=== PATIENT | female | born 1930 | race Two or more races ===

== ENCOUNTER 2017-12-28 22:50 | Inpatient (IN) | payer MEDICARE, OTHER ==
[~2017-12-28] VITALS: Ht 157.5 cm; Wt 61.2 kg
[2017-12-28 23:38] LABS: BASOPHILS % (AUTO) 0.3 % (0.0-2.0); EOSINOPHILS # (AUTO) 0.1 K/uL (0.0-0.7); EOSINOPHILS % (AUTO) 2.1 % (0.0-7.0); HEMATOCRIT 28.2 % (31.2-41.9); HEMOGLOBIN 9.6 g/dL (10.9-14.3); LYMPHOCYTES # (AUTO) 1.7 K/uL (20.0-40.0); LYMPHOCYTES % (AUTO) 23.2 % (20.5-51.5); MEAN CORPUSCULAR HGB CONC 34 g/dL (32.3-35.6); MEAN CORPUSCULAR VOLUME 93.5 fL (75.5-95.3); MONOCYTES % (AUTO) 13.9 % (0.0-11.0); NEUTROPHILS # (AUTO) 4.3 K/uL (1.8-8.9); NEUTROPHILS % (AUTO) 60.5 % (38.5-71.5); PLATELET COUNT (AUTO) 241 K/uL (179-408); RED BLOOD CELL COUNT(AUTO) 3.02 MIL/uL (3.63-4.92); WHITE BLOOD COUNT (AUTO) 7.1 K/uL (3.8-11.8)
[2017-12-28 23:48] LABS: ALANINE AMINOTRANSFERASE 20 U/L (14-59); ALKALINE PHOSPHATASE 121 U/L (50-136); ASPARTATE AMINOTRANSFERASE 28 U/L (15-37); BILIRUBIN,DIRECT 0.2 mg/dL (0.0-0.2); BILIRUBIN,TOTAL 0.6 mg/dL (0.2-1.0); CARBON DIOXIDE 24 mmol/L (21-32); CHLORIDE 103 mmol/L (98-107); CREATININE 1.2 mg/dL (0.6-1.3); GLUCOSE 78 mg/dL (74-106); POTASSIUM 3.7 mmol/L (3.5-5.1); TOTAL PROTEIN, SERUM 6.9 g/dL (6.4-8.2); UREA NITROGEN, BLOOD 31 mg/dL (7-18)
[2017-12-28] MEDS ORDERED: HYDR-4077 PO (23:51)
[2017-12-28] MEDS ORDERED: DEXL60CA3 PO (23:51)
[2017-12-28] MEDS ORDERED: VALS320T2 PO (23:51)
[2017-12-28] MEDS ORDERED: IPRA3AMP IH (23:51)
[2017-12-28] MEDS ORDERED: ONDA8TAB6 PO (23:51)
[2017-12-28] MEDS ORDERED: WARF2TAB57 PO (23:51)
[2017-12-28] MEDS ORDERED: SENN-167 PO (23:51)
[2017-12-28] MEDS ORDERED: MULT1TAB73 PO (23:51)
[2017-12-28] MEDS ORDERED: ESCI10TA PO (23:51)
[2017-12-28] MEDS ORDERED: GLIM1TAB3 PO (23:51)
[2017-12-28] MEDS ORDERED: ATOR20TA PO (23:51)
[2017-12-28] MEDS ORDERED: METO200T49 PO (23:51)
[2017-12-28] MEDS ORDERED: FURO-151 PO (23:51)
[2017-12-28] MEDS ORDERED: [UNRECOGNIZED DRUG - CODE] IJ (23:51)
[2017-12-28] MEDS ORDERED: PHEN1SUP42 RC (23:51)
[2017-12-28] MEDS ORDERED: NITR0.4T48 SL (23:51)
[2017-12-28] MEDS ORDERED: MELA3TAB PO (23:51)
[2017-12-28] MEDS ORDERED: FERR325T28 PO (23:51)
[2017-12-28] MEDS ORDERED: GUAI600T53 PO (23:51)
[2017-12-28] MEDS ORDERED: CLON0.1T PO (23:51)
[2017-12-28 23:55] LABS: ETHANOL < 3 MG/DL (0-0)
[2017-12-28 23:56] LABS: THYROID STIMULATING HORMONE 2.477 mIU/mL (0.358-3.740)
[2017-12-29] MEDS ORDERED: SULFAMETH/TRIMETH 800/160 MG TABLET PO ONE
[2017-12-29] MEDS ORDERED: SULFAMETH/TRIMETH 800/160 MG TABLET ONE (00:09)
[2017-12-29] MEDS ORDERED: LORAZEPAM 1 MG TABLET PO PRN (01:15)
[2017-12-29] MEDS ORDERED: MAGNESIUM HYDROXIDE 30 ML LIQUID UDC PO PRN (01:15)
[2017-12-29] MEDS ORDERED: MAG HYDROX/AL HYDROX/SIMETH 30 ML LIQUID UDC PO PRN (01:15)
[2017-12-29 03:29] VITALS: BP 150/54
[2017-12-29 07:30] VITALS: BP 164/59
[2017-12-29] MEDS ORDERED: SENNOSIDES 1 TABLET PO PRN (11:00)
[2017-12-29] MEDS ORDERED: Medication Not On Formulary EA (Glimepiride 1 MG) PO SCH (11:00)
[2017-12-29] MEDS ORDERED: Medication Not On Formulary EA (Multivitamins (Multivitamin) 1 EACH) PO SCH (11:00)
[2017-12-29] MEDS ORDERED: Medication Not On Formulary EA (Valsartan (Diovan) 320 MG) PO SCH (11:00)
[2017-12-29] MEDS ORDERED: DEXTROSE 50% 50 ML DISP.SYRIN IV PRN (11:15)
[2017-12-29] MEDS ORDERED: INSULIN REGULAR, HUMAN 300 UNIT/3 ML VIAL SQ PRN (11:15)
[2017-12-29] MEDS: MULTIVITAMINS,THERAPEUTIC TABLET PO SCH (12:01)
[2017-12-29] MEDS: CLONIDINE HCL 0.1 MG TABLET PO SCH ×2 (12:01→21:11)
[2017-12-29] MEDS: BLOOD SUGAR DIAGNOSTIC 1 EACH STRIP VI SCH ×3 (12:02→21:11)
[2017-12-29] MEDS: FUROSEMIDE 20 MG TABLET PO SCH (12:02)
[2017-12-29] MEDS: FERROUS SULFATE 325 MG TABEC PO SCH (12:02)
[2017-12-29] MEDS: METOPROLOL SUCCINATE XL 100 MG TAB.SR.24H PO SCH (12:28)
[2017-12-29] MEDS ORDERED: NITROGLYCERIN 0.4 MG/TAB BOTTLE SL PRN (12:30)
[2017-12-29] MEDS ORDERED: FUROSEMIDE 40 MG TABLET PO SCH (13:00)
[2017-12-29 15:13] VITALS: BP 144/54
[2017-12-29] MEDS: hydrALAZINE HCL 50 MG TABLET PO SCH (16:58)
[2017-12-29] MEDS ORDERED: WARFARIN SODIUM 2 MG TABLET PO SCH (17:00)
[2017-12-29] MEDS ORDERED: WARFARIN SODIUM 1 MG TABLET PO SCH (17:00)
[2017-12-29 20:30] VITALS: BP 126/50
[2017-12-29] MEDS: ATORVASTATIN 20 MG TABLET PO SCH (21:11)
[2017-12-30] MEDS: PANTOPRAZOLE SODIUM 40 MG TABLET.DR PO SCH (06:25)
[2017-12-30] MEDS: BLOOD SUGAR DIAGNOSTIC 1 EACH STRIP VI SCH ×2 (06:31→12:26)
[2017-12-30 07:30] VITALS: BP 146/46
[2017-12-30] MEDS: VALSARTAN 160 MG TABLET PO SCH (08:13)
[2017-12-30] MEDS: FERROUS SULFATE 325 MG TABEC PO SCH ×2 (08:13→17:20)
[2017-12-30] MEDS: MULTIVITAMINS,THERAPEUTIC TABLET PO SCH (08:14)
[2017-12-30] MEDS: FUROSEMIDE 20 MG TABLET PO SCH (08:14)
[2017-12-30] MEDS: METOPROLOL SUCCINATE XL 100 MG TAB.SR.24H PO SCH (08:14)
[2017-12-30] MEDS: CLONIDINE HCL 0.1 MG TABLET PO SCH ×2 (08:15→20:10)
[2017-12-30] MEDS: GLIMEPIRIDE 2 MG TABLET PO SCH (08:15)
[2017-12-30] MEDS: VENLAFAXINE XR 37.5 MG CAP.SR.24H PO SCH (08:15)
[2017-12-30] MEDS: hydrALAZINE HCL 50 MG TABLET PO SCH ×2 (08:15→17:20)
[2017-12-30] MEDS ORDERED: METOPROLOL SUCCINATE 200 MG PO SCH (09:00)
[2017-12-30] MEDS ORDERED: CEPHALEXIN MONOHYDRATE 500 MG CAPSULE PO SCH (12:45)
[2017-12-30 15:30] VITALS: BP 143/44
[2017-12-30] MEDS: CEPHALEXIN MONOHYDRATE 250 MG CAPSULE PO SCH ×2 (17:20→23:01)
[2017-12-30] MEDS: WARFARIN SODIUM 2 MG TABLET PO SCH (17:25)
[2017-12-30] MEDS: ATORVASTATIN 20 MG TABLET PO SCH (20:09)
[2017-12-30] MEDS: ACETAMINOPHEN 325 MG TABLET PO PRN (20:10)
[2017-12-30 20:35] VITALS: BP 141/82
[2017-12-31] MEDS: ZOLPIDEM 5 MG TABLET PO PRN ×2 (01:32→21:13)
[2017-12-31] MEDS: PANTOPRAZOLE SODIUM 40 MG TABLET.DR PO SCH (06:04)
[2017-12-31] MEDS: CEPHALEXIN MONOHYDRATE 250 MG CAPSULE PO SCH ×3 (06:04→21:02)
[2017-12-31] MEDS: BLOOD SUGAR DIAGNOSTIC 1 EACH STRIP VI SCH ×2 (06:17→09:44)
[2017-12-31 07:30] VITALS: BP 156/48
[2017-12-31] MEDS: FERROUS SULFATE 325 MG TABEC PO SCH ×2 (08:59→16:01)
[2017-12-31] MEDS: MULTIVITAMINS,THERAPEUTIC TABLET PO SCH (08:59)
[2017-12-31] MEDS: CLONIDINE HCL 0.1 MG TABLET PO SCH ×2 (08:59→20:25)
[2017-12-31] MEDS: hydrALAZINE HCL 50 MG TABLET PO SCH ×2 (09:00→16:01)
[2017-12-31] MEDS: GLIMEPIRIDE 2 MG TABLET PO SCH (09:00)
[2017-12-31] MEDS: FUROSEMIDE 20 MG TABLET PO SCH (09:00)
[2017-12-31] MEDS: METOPROLOL SUCCINATE XL 100 MG TAB.SR.24H PO SCH (09:01)
[2017-12-31] MEDS: VALSARTAN 160 MG TABLET PO SCH (09:01)
[2017-12-31] MEDS: VENLAFAXINE XR 37.5 MG CAP.SR.24H PO SCH (09:44)
[2017-12-31] MEDS: ACETAMINOPHEN 325 MG TABLET PO PRN (11:06)
[2017-12-31] MEDS ORDERED: TRAMADOL HCL 50 MG TABLET PO PRN ×2 (14:00→16:00)
[2017-12-31 15:55] VITALS: BP 143/50
[2017-12-31] MEDS: WARFARIN SODIUM 2 MG TABLET PO SCH (16:02)
[2017-12-31 20:00] VITALS: BP 151/54
[2017-12-31] MEDS: ATORVASTATIN 20 MG TABLET PO SCH (20:25)
[2018-01-01] MEDS: BLOOD SUGAR DIAGNOSTIC 1 EACH STRIP VI SCH (06:45)
[2018-01-01] MEDS: CEPHALEXIN MONOHYDRATE 250 MG CAPSULE PO SCH ×3 (06:51→22:07)
[2018-01-01] MEDS: PANTOPRAZOLE SODIUM 40 MG TABLET.DR PO SCH (06:51)
[2018-01-01 07:30] VITALS: BP 148/52
[2018-01-01] MEDS: hydrALAZINE HCL 50 MG TABLET PO SCH ×2 (08:06→17:37)
[2018-01-01] MEDS: GLIMEPIRIDE 2 MG TABLET PO SCH (08:06)
[2018-01-01] MEDS: FERROUS SULFATE 325 MG TABEC PO SCH ×2 (08:06→17:38)
[2018-01-01] MEDS: MULTIVITAMINS,THERAPEUTIC TABLET PO SCH (08:06)
[2018-01-01] MEDS: VENLAFAXINE XR 37.5 MG CAP.SR.24H PO SCH (08:07)
[2018-01-01] MEDS: CLONIDINE HCL 0.1 MG TABLET PO SCH ×2 (08:07→20:07)
[2018-01-01] MEDS: VALSARTAN 160 MG TABLET PO SCH (08:08)
[2018-01-01] MEDS: FUROSEMIDE 20 MG TABLET PO SCH (08:08)
[2018-01-01] MEDS: METOPROLOL SUCCINATE XL 100 MG TAB.SR.24H PO SCH ×2 (08:17→10:09)
[2018-01-01 17:41] VITALS: BP 135/56
[2018-01-01] MEDS: WARFARIN SODIUM 2 MG TABLET PO SCH (17:41)
[2018-01-01] MEDS: ACETAMINOPHEN 325 MG TABLET PO PRN (20:06)
[2018-01-01] MEDS: ATORVASTATIN 20 MG TABLET PO SCH (20:06)
[2018-01-01 20:12] VITALS: BP 169/51
[2018-01-02] MEDS: ZOLPIDEM 5 MG TABLET PO PRN ×2 (01:04→20:38)
[2018-01-02] MEDS: CEPHALEXIN MONOHYDRATE 250 MG CAPSULE PO SCH ×3 (06:07→21:32)
[2018-01-02] MEDS: PANTOPRAZOLE SODIUM 40 MG TABLET.DR PO SCH (06:08)
[2018-01-02] MEDS: BLOOD SUGAR DIAGNOSTIC 1 EACH STRIP VI SCH (06:35)
[2018-01-02 07:30] VITALS: BP 145/48
[2018-01-02] MEDS: FUROSEMIDE 20 MG TABLET PO SCH (08:11)
[2018-01-02] MEDS: MULTIVITAMINS,THERAPEUTIC TABLET PO SCH (08:11)
[2018-01-02] MEDS: GLIMEPIRIDE 2 MG TABLET PO SCH (08:11)
[2018-01-02] MEDS: CLONIDINE HCL 0.1 MG TABLET PO SCH ×2 (08:11→20:36)
[2018-01-02] MEDS: FERROUS SULFATE 325 MG TABEC PO SCH ×2 (08:11→16:33)
[2018-01-02] MEDS: VENLAFAXINE XR 37.5 MG CAP.SR.24H PO SCH (08:11)
[2018-01-02] MEDS: VALSARTAN 160 MG TABLET PO SCH (08:12)
[2018-01-02] MEDS: hydrALAZINE HCL 50 MG TABLET PO SCH ×2 (08:12→16:33)
[2018-01-02] MEDS: METOPROLOL SUCCINATE XL 100 MG TAB.SR.24H PO SCH (08:13)
[2018-01-02] MEDS: ACETAMINOPHEN 325 MG TABLET PO PRN ×2 (11:35→23:26)
[2018-01-02 16:01] VITALS: BP 153/50
[2018-01-02] MEDS: WARFARIN SODIUM 2 MG TABLET PO SCH (16:34)
[2018-01-02] MEDS: ATORVASTATIN 20 MG TABLET PO SCH (20:36)
[2018-01-02 20:58] VITALS: BP 169/60
[2018-01-02] MEDS: LORAZEPAM 1 MG TABLET PO PRN (23:26)
[2018-01-03] MEDS: PANTOPRAZOLE SODIUM 40 MG TABLET.DR PO SCH (06:13)
[2018-01-03] MEDS: CEPHALEXIN MONOHYDRATE 250 MG CAPSULE PO SCH ×3 (06:13→21:07)
[2018-01-03] MEDS: BLOOD SUGAR DIAGNOSTIC 1 EACH STRIP VI SCH ×2 (06:21→07:27)
[2018-01-03] MEDS: VALSARTAN 160 MG TABLET PO SCH (08:11)
[2018-01-03] MEDS: hydrALAZINE HCL 50 MG TABLET PO SCH ×2 (08:12→16:28)
[2018-01-03] MEDS: VENLAFAXINE XR 37.5 MG CAP.SR.24H PO SCH (08:12)
[2018-01-03] MEDS: MULTIVITAMINS,THERAPEUTIC TABLET PO SCH (08:12)
[2018-01-03] MEDS: FERROUS SULFATE 325 MG TABEC PO SCH ×2 (08:12→16:26)
[2018-01-03] MEDS: FUROSEMIDE 20 MG TABLET PO SCH (08:12)
[2018-01-03] MEDS: GLIMEPIRIDE 2 MG TABLET PO SCH (08:12)
[2018-01-03] MEDS: CLONIDINE HCL 0.1 MG TABLET PO SCH ×2 (08:12→21:09)
[2018-01-03] MEDS: METOPROLOL SUCCINATE XL 100 MG TAB.SR.24H PO SCH (08:13)
[2018-01-03 08:17] VITALS: BP 164/53
[2018-01-03] MEDS: AMLODIPINE 5 MG TABLET PO SCH (13:53)
[2018-01-03] MEDS: ACETAMINOPHEN 325 MG TABLET PO PRN ×2 (16:26→21:08)
[2018-01-03] MEDS: WARFARIN SODIUM 2 MG TABLET PO SCH (16:59)
[2018-01-03] MEDS: ATORVASTATIN 20 MG TABLET PO SCH (21:07)
[2018-01-03] MEDS: ZOLPIDEM 5 MG TABLET PO PRN (21:08)
[2018-01-03 21:40] VITALS: BP 143/51
[2018-01-04] MEDS: ACETAMINOPHEN 325 MG TABLET PO PRN ×2 (02:23→16:38)
[2018-01-04] MEDS: LORAZEPAM 1 MG TABLET PO PRN (02:23)
[2018-01-04] MEDS: CEPHALEXIN MONOHYDRATE 250 MG CAPSULE PO SCH ×2 (06:18→13:53)
[2018-01-04] MEDS: PANTOPRAZOLE SODIUM 40 MG TABLET.DR PO SCH (06:18)
[2018-01-04] MEDS: BLOOD SUGAR DIAGNOSTIC 1 EACH STRIP VI SCH (06:28)
[2018-01-04 07:30] VITALS: BP 125/38
[2018-01-04] MEDS: VALSARTAN 160 MG TABLET PO SCH (08:06)
[2018-01-04] MEDS: MULTIVITAMINS,THERAPEUTIC TABLET PO SCH (08:06)
[2018-01-04] MEDS: GLIMEPIRIDE 2 MG TABLET PO SCH (08:06)
[2018-01-04] MEDS: VENLAFAXINE XR 37.5 MG CAP.SR.24H PO SCH (08:07)
[2018-01-04] MEDS: METOPROLOL SUCCINATE XL 100 MG TAB.SR.24H PO SCH (08:07)
[2018-01-04] MEDS: FERROUS SULFATE 325 MG TABEC PO SCH ×2 (08:07→16:38)
[2018-01-04] MEDS: FUROSEMIDE 20 MG TABLET PO SCH (08:08)
[2018-01-04] MEDS: AMLODIPINE 5 MG TABLET PO SCH (08:08)
[2018-01-04] MEDS: hydrALAZINE HCL 50 MG TABLET PO SCH ×2 (08:09→16:39)
[2018-01-04] MEDS: CLONIDINE HCL 0.1 MG TABLET PO SCH (08:09)
[2018-01-04 16:34] VITALS: BP 170/55
[2018-01-04 16:39] VITALS: BP 140/50
[2018-01-04] MEDS: WARFARIN SODIUM 2 MG TABLET PO SCH (16:42)
== END 2018-01-04 20:20 | DRG 881 ==
LOC: ER 22:50 → GPS 12-29 00:50
PROVIDERS: ADMIT Psychiatry & Neurology Psychiatry; ATTEND Nurse Practitioner Acute Care
DX: F32.9 Major depressive disorder, single episode, unspecified (principal); N18.3 Chronic kidney disease, stage 3 (moderate); I48.2 Chronic atrial fibrillation; I27.20 Pulmonary hypertension, unspecified; K86.2 Cyst of pancreas; L03.115 Cellulitis of right lower limb; I13.0 Hypertensive heart and chronic kidney disease with heart failure and stage 1 through stage 4 chronic kidney disease, or unspecified chronic kidney disease; I50.32 Chronic diastolic (congestive) heart failure; L03.116 Cellulitis of left lower limb; Z95.1 Presence of aortocoronary bypass graft; Z91.5 Personal history of self-harm; Z95.2 Presence of prosthetic heart valve; I25.10 Atherosclerotic heart disease of native coronary artery without angina pectoris; Z79.01 Long term (current) use of anticoagulants; F03.90 Unspecified dementia, unspecified severity, without behavioral disturbance, psychotic disturbance, mood disturbance, and anxiety; G89.29 Other chronic pain; D64.9 Anemia, unspecified; R79.1 Abnormal coagulation profile; I44.7 Left bundle-branch block, unspecified; T39.1X2D Poisoning by 4-Aminophenol derivatives, intentional self-harm, subsequent encounter
CPT/HCPCS: 36415; 70030-TC; 71045; 84443; 85025; 85610; 85730; 93005; 93307; A4663; G0480; J1815